=== PATIENT | male | born 1995 | race Caucasian/White ===

== ENCOUNTER 2024-07-18 21:20 | Inpatient (IN) | payer SELFPAY ==
[~2024-07-18] VITALS: Ht 165.1 cm; Wt 81.6 kg
[2024-07-18 21:48] LABS: BASOPHILS % 0.5 % (0.0-2.0); EOSINOPHILS % 2.2 % (0.0-5.0); HEMATOCRIT. 41.8 % (42.0-52.0); HEMOGLOBIN. 14.3 g/dL (14.0-18.0); LYMPHOCYTES % 35.6 % (20.0-50.0); MEAN CORPUSCULAR HEMOGLOBIN 31.8 pg (28.0-32.0); MEAN CORPUSCULAR HGB CONC 34.3 g/dL (31.0-37.0); MEAN CORPUSCULAR VOLUME 92.8 fL (80.0-94.0); MEAN PLATELET VOLUME 9.1 fl (7.4-10.4); MONOCYTES % 5.3 % (2.0-8.0); NEUTROPHILS % 56.4 % (40.0-76.0); PLATELET 338 x1000/uL (130-400); RED CELL DISTRIBUTION WIDTH 12.8 % (11.6-14.6); WHITE BLOOD COUNT 12.6 x1000/uL (4.5-11.0)
[2024-07-18 21:54] LABS: CHLORIDE 104 mEq/L (98-107); POTASSIUM 2.9 mEq/L (3.5-5.1); SODIUM 136 mEq/L (136-145)
[2024-07-18 21:55] LABS: CARBON DIOXIDE 23 mEq/L (21-32)
[2024-07-18] MEDS: SODIUM CHLORIDE 0.9% 1,000 ML IV ONE ×2 (21:58→22:30)
[2024-07-18 22:00] LABS: CREATININE 1.1 mg/dL (0.6-1.3); GLUCOSE 191 mg/dL (70-105); LACTIC ACID 3.3 mmol/L (0.4-2.0); TROPONIN I HIGH SENSITIVITY 10 ng/L (3.0-53); UREA NITROGEN BLOOD 12 mg/dL (9-23)
[2024-07-18 22:02] LABS: D-DIMER < 0.19 mg/L FEU (<0.50); PARTIAL THROMBOPLASTIN TIME 23.9 sec (23.4-31.0); PROTHROMBIN TIME 10.9 sec (9.6-11.0)
[2024-07-18 22:05] LABS: T4 FREE 1.08 ng/dL (0.89-1.76); THYROID STIMULATING HORMONE 2.07 uIU/mL (0.55-4.78)
[2024-07-18] MEDS: SODIUM CHLORIDE 0.9% 500 ML IV ONE (22:30)
[2024-07-18] MEDS ORDERED: CEFTRIAXONE 1GM/50ML 50 ML IV ONE (22:30)
[2024-07-19] MEDS ORDERED: VANCOMYCIN 1G PREMIX 200 ML IV SCH (00:45)
[2024-07-19] MEDS ORDERED: POTASSIUM CHLORIDE 20MEQ TABLET SR PO ONE (00:45)
[2024-07-19] MEDS: CEFTRIAXONE 1GM/50ML 50 ML IV NR (02:41)
[2024-07-19] MEDS: VANCOMYCIN 1G PREMIX 200 ML IV NR (02:41)
[2024-07-19] MEDS: POTASSIUM CHLORIDE 20MEQ TABLET SR PO NR (02:41)
[2024-07-19] MEDS: PIPERACILLIN/TAZO 3.375G/50ML 50 ML IV SCH (06:42)
[2024-07-19 07:05] LABS: CLARITY URINE CLEAR (CLEAR); COLOR URINE YELLOW (YELLOW); GLUCOSE URINE NEGATIVE (NEGATIVE); KETONES URINE NEGATIVE (NEGATIVE); LEUKOCYTE ESTERASE URINE NEGATIVE (NEGATIVE); NITRITE URINE NEGATIVE (NEGATIVE); OCCULT BLOOD URINE NEGATIVE (NEGATIVE); PROTEIN URINE NEGATIVE (NEGATIVE); SPECIFIC GRAVITY URINE 1.019 (1.005-1.030); UROBILINOGEN URINE 0.2 E.U./dL (0.2-1.0)
[2024-07-19 10:52] VITALS: BP 111/61; PULSE 80; RESP 16; TEMP 36.7516
[2024-07-19 12:00] VITALS: BP 105/53; PULSE 92; RESP 18; TEMP 36.83628; O2SAT 99
[2024-07-19] MEDS ORDERED: CLONIDINE 0.1MG TABLET PO PRN (12:00)
[2024-07-19] MEDS ORDERED: ACETAMINOPHEN 325MG TABLET PO PRN (12:00)
[2024-07-19] MEDS ORDERED: ZOLPIDEM TARTRATE 5MG TABLET PO PRN (12:00)
[2024-07-19] MEDS ORDERED: ONDANSETRON HCL 4MG/2ML INJ IV PRN (12:00)
[2024-07-19] MEDS: INFLUENZA VACCINE 05/PF 0.5 ML SYRINGE IM ONE (14:00)
[2024-07-19] MEDS ORDERED: METO25TA6 PO (15:25)
[2024-07-19] MEDS: ENOXAPARIN 40MG/0.4ML SYR SUBCUT SCH (15:47)
[2024-07-19 16:00] VITALS: BP 128/71; PULSE 72; RESP 18; TEMP 37.00296; O2SAT 99
[2024-07-19 17:28] LABS: HEPATITIS B SURFACE ANTIGEN NEGATIVE (Negative)
[2024-07-19 17:49] LABS: HEPATITIS C AB NON REACTIVE (Neg) (Negative)
[2024-07-19 17:51] LABS: *AMPHETAMINES SCREEN URINE NEGATIVE (NEGATIVE); *BARBITURATES SCREEN URINE NEGATIVE (NEGATIVE); *BENZODIAZEPINES SCREEN URINE NEGATIVE (NEGATIVE); *COCAINE SCREEN URINE NEGATIVE (NEGATIVE); METHADONE URINE SCREEN NEGATIVE (NEGATIVE)
[2024-07-19 17:52] LABS: CANNABINOID URINE SCREEN PRESUMPTIVE POSITIVE (NEGATIVE); ECSTASY MDMA SCREEN URINE NEGATIVE (NEGATIVE); OPIATES URINE SCREEN NEGATIVE (NEGATIVE); PHENCYCLIDINE URINE SCREEN NEGATIVE (NEGATIVE)
[2024-07-19 18:57] VITALS: BP 128/72; PULSE 68; TEMP 98.3; O2SAT 99
[2024-07-19] MEDS ORDERED: METOPROLOL TARTRATE 25MG TABLET PO SCH (21:00)
== END 2024-07-19 19:47 | disposition home or self-care (01) | DRG 720 ==
LOC: ER 21:20 → EDBEDREQ 07-19 00:42 → 7EST 07-19 08:50
PROVIDERS: ADMIT Internal Medicine; ATTEND Internal Medicine
DX: A41.9 Sepsis, unspecified organism (principal); E87.20 Acidosis, unspecified; I47.10 Supraventricular tachycardia, unspecified; E87.6 Hypokalemia; R73.9 Hyperglycemia, unspecified
CPT/HCPCS: 36415; 71045; 80048; 80305; 81003; 82550; 82553; 83605; 83880; 84145; 84439; 84443; 84484; 85025; 85379; 86705; 87340; 90686; 93005; 99291; J0696; J1650; J2543; J3370; J7030; J7040